=== PATIENT | female | born 1995 | race American Indian/Alaskan Native ===

== ENCOUNTER 2017-01-04 21:40 | Emergency (ER) | payer MEDICAID ==
[2017-01-05 00:46] LABS: BUN/Creatinine Ratio 13.75; Blood Urea Nitrogen 11 mg/dL (7-17); Calcium 10.3 mg/dL (8.4-10.2); Carbon Dioxide 24 mmol/L (22-30); Chloride 122.8 mmol/L (98-107); Creatine Kinase 113 units/L (30-135); Glucose 88 mg/dL (65-100); Potassium 4.1 mmol/L (3.6-5.0)
[2017-01-05 00:47] LABS: Creatine Kinase MB < 1.0 ng/mL (0.0-4.0)
[2017-01-05 00:58] LABS: INR 1.08 (0.87-1.13)
[2017-01-05 01:03] LABS: Anion Gap 25 mmol/L; Sodium 168 mmol/L (137-145)
--- NOTE | 2017-01-05 01:53 | Emergency Department Report ---
ED General Adult HPI - General Chief complaint: Syncope Stated complaint: LEFT EAR RINGING/PASSED OUT Time Seen by Provider: 01/05/17 01:39 Source: patient Mode of arrival: Ambulatory Limitations: No Limitations - History of Present Illness Initial comments: This is a 21-year-old female. She is previously unknown to me. Her primary care doctor is at [facility]. She reports a past medical history of asthma. She reports that she is not . The patient is brought to the hospital for evaluation of ear pain and syncope. The patient reports that around 6:00 last night, she was at a store, shopping. She thinks that she passed out. Prior to the event, there was no severe or sudden or thunderclap headache, there was no neck pain or neck stiffness, there is no chest pain or shortness of breath. There is no leg pain. There is no leg swelling. No recent trips greater than 4 hours. No recent hospital admissions. Does not take control tablets. Patient does report left-sided ear pain, left-sided ear ringing. She reports that she has never had chickenpox before. She denies vertigo. She admits to tinnitus. The symptoms in the ER are worsened with palpation. It decreased with rest. Patient has never had an episode of syncope before. -: Sudden Location: left (ear) Radiation: non-radiation Quality: aching Consistency: constant Improves with: rest Worsens with: movement Associated Symptoms: denies: chest pain - Related Data Previous Rx's Medication Instructions Recorded Last Taken Type Ondansetron [Zofran Odt] 4 mg PO Q6H #14 tab.rapdis 01/28/15 Unknown Rx Promethazine [Phenergan] 25 mg PO Q6H PRN #14 tablet 01/28/15 Unknown Rx Amoxicillin/K Clav Tab [Augmentin 1 tab PO Q12HR #19 tab 01/05/17 Unknown Rx 875 mg] Cipro/Dexameth 0.3/0.1% [Ciprodex 4 drops AD BID #2 bottle 01/05/17 Unknown Rx OTIC] Ibuprofen [Motrin] 600 mg PO Q8H PRN #30 tablet 01/05/17 Unknown Rx Metoclopramide [Reglan] 10 mg PO QID PRN #30 tablet 01/05/17 Unknown Rx Allergies Allergy/AdvReac Type Severity Reaction Status Date / Time oxycodone Allergy Itching Verified 11/02/14 18:29 ED Review of Systems ROS: Stated complaint: LEFT EAR RINGING/PASSED OUT Other details as noted in HPI Constitutional: denies: fever Eyes: denies: eye discharge, vision change ENT: ear pain Respiratory: denies: cough Cardiovascular: syncope Gastrointestinal: denies: abdominal pain, nausea, diarrhea Genitourinary: denies: urgency, dysuria, discharge Musculoskeletal: denies: back pain, joint swelling, arthralgia Skin: denies: rash, lesions Neurological: headache Psychiatric: as per HPI ED Past Medical Hx - Past Medical History Previous Medical History?: Yes Hx Asthma: Yes Additional medical history: ECTOPIC - Social History Smoking Status: Never Smoker Substance Use Type: None - Medications Home Medications: Home Medications Medication Instructions Recorded Confirmed Last Taken Type Ondansetron [Zofran Odt] 4 mg PO Q6H #14 tab.rapdis 01/28/15 Unknown Rx Promethazine [Phenergan] 25 mg PO Q6H PRN #14 tablet 01/28/15 Unknown Rx Amoxicillin/K Clav Tab [Augmentin 1 tab PO Q12HR #19 tab 01/05/17 Unknown Rx 875 mg] Cipro/Dexameth 0.3/0.1% [Ciprodex 4 drops AD BID #2 bottle 01/05/17 Unknown Rx OTIC] Ibuprofen [Motrin] 600 mg PO Q8H PRN #30 tablet 01/05/17 Unknown Rx Metoclopramide [Reglan] 10 mg PO QID PRN #30 tablet 01/05/17 Unknown Rx ED Physical Exam - General Limitations: No Limitations General appearance: alert, in no apparent distress - Head Head exam: Present: atraumatic, normocephalic - Eye Eye exam: Present: normal appearance, PERRL, EOMI, other (visual acuity intact to finger counting, color perception, reading at a close distance). Absent: nystagmus - ENT ENT exam: Present: normal exam, normal orophraynx, mucous membranes moist. Absent: TM's normal bilaterally (the right tympanic membrane is within normal limits. The left tympanic membrane is within normal limits. The left ear helix is minimally tender. There is no redness, pus or streaking. There is a possible vesicle noted on the posterior aspect of left external auditory canal. There is no elevation in the left ear. The left mastoid is minimally tender.) - Neck Neck exam: Present: normal inspection - Respiratory Respiratory exam: Present: normal lung sounds bilaterally. Absent: respiratory distress, wheezes, rales, rhonchi, stridor, chest wall tenderness, accessory muscle use, decreased breath sounds, prolonged expiratory - Cardiovascular Cardiovascular Exam: Present: regular rate, normal rhythm, normal heart sounds. Absent: bradycardia, tachycardia, irregular rhythm, systolic murmur, diastolic murmur, rubs, gallop - GI/Abdominal GI/Abdominal exam: Present: soft, normal bowel sounds. Absent: distended, tenderness, guarding, rebound, rigid, pulsatile mass - Extremities Exam Extremities exam: Present: normal inspection, full ROM, normal capillary refill. Absent: tenderness, pedal edema, joint swelling, calf tenderness - Back Exam Back exam: Present: normal inspection, full ROM. Absent: tenderness, CVA tenderness (R), CVA tenderness (L), muscle spasm, paraspinal tenderness, vertebral tenderness - Neurological Exam Neurological exam: Present: alert, oriented X3, normal gait (normal gait. Normal tandem gait. No past pointing. Negative Romberg examination. normal [id number].), other (Extraocular movements intact. Tongue midline. No facial droop. Facial sensation intact to light touch in the V1, V2, V3 distribution bilaterally. 5 and 5 strength in 4 extremities.. Sensation is intact to light touch in 4 extremities.). Absent: motor sensory deficit - Psychiatric Psychiatric exam: Present: normal affect, normal mood - Skin Skin exam: Present: warm, dry, intact, normal color. Absent: rash ED Course Vital Signs 01/04/17 01/05/17 01/05/17 23:26 01:27 01:30 Temperature 98.6 F Pulse Rate 75 64 Respiratory 18 17 Rate Blood Pressure 153/101 139/75 Blood Pressure [Right] O2 Sat by Pulse 100 92 100 Oximetry 01/05/17 01/05/17 01/05/17 01:38 01:41 01:51 Temperature Pulse Rate 65 78 67 Respiratory 12 16 12 Rate Blood Pressure 139/75 139/75 Blood Pressure 139/75 [Right] O2 Sat by Pulse 99 100 99 Oximetry 01/05/17 01/05/17 01/05/17 02:00 02:11 02:21 Temperature Pulse Rate 59 L 67 65 Respiratory 16 12 15 Rate Blood Pressure 132/69 139/75 139/75 Blood Pressure [Right] O2 Sat by Pulse 100 100 98 Oximetry 01/05/17 01/05/17 01/05/17 02:31 02:41 03:05 Temperature Pulse Rate 82 68 77 Respiratory 22 17 19 Rate Blood Pressure 139/75 139/75 140/67 Blood Pressure [Right] O2 Sat by Pulse 98 98 97 Oximetry 01/05/17 01/05/17 01/05/17 03:11 03:21 03:31 Temperature Pulse Rate 81 79 68 Respiratory 11 L 15 12 Rate Blood Pressure 140/67 140/67 101/74 Blood Pressure [Right] O2 Sat by Pulse 98 99 99 Oximetry - Reevaluation(s) Reevaluation #1: 01/05/17 03:22 Differential diagnosis: Intracranial injury, intracranial lesion, peripheral vertigo, herpes zoster, mastoiditis, perichondritis, chondritis Assessment and plan: 21-year-old female with pain in the ear, tinnitus, episode of syncope. She has a GCS of 15, with an NIH score of 0. There are no pulmonary embolus or DVT risk factors, and she walks with a steady gait. She is low risk by well's criteria, and she is perc negative. The left ear is minimally tender with no redness, pus or streaking. There is a possible vesicle on the posterior aspect of the external auditory canal. There is no obvious cellulitis. Bilateral ears appear to be symmetric. There is no elevation of the base of the ear. May be early episode of zoster. She will be treated symptomatically. Initial laboratory studies abnormal, they will repeated and was subsequently normal. EKG is essentially morphologically unremarkable. Persistent juvenile T-wave inversion is suggested. Noncontrast head CT is ordered to exclude intracranial injury.Patient is clinically sober at this time. The cervical spine is cleared through nexus and slovak c spine rule Reevaluation #2: 01/05/17 05:01 the patient is sleeping comfortably. Repeat neurologic examination is unremarkable. She is tolerating liquid feeds. ct scan shos left otitis externa and mastoiditis. case is discussed with ENT community relations officer [facility], Dr. Mccoy. He recommends Augmentin, 875 twice daily for 10 days, and Ciprodex. He recommends follow-up with otolaryngology, otaology specialist. Phone # [phone] patient is given names, phone numbers, addresses of the local otolaryngology specialist. She has been observed in the ER for a prolonged period of time. She is suitable for discharge at this time. She is tolerating liquid feeds. She is counseled on the importance of close outpatient follow- up. Return precautions are extensively reviewed. ED Medical Decision Making - Lab Data Result diagrams: 01/05/17 02:13 01/05/17 01:51 Vital Signs 01/04/17 01/05/17 23:26 01:38 Temperature 98.6 F Pulse Rate 75 65 Respiratory 18 12 Rate Blood Pressure 153/101 Blood Pressure 139/75 [Right] O2 Sat by Pulse 100 99 Oximetry Lab Results 01/04/17 01/04/17 01/05/17 Range/Units 23:58 23:58 01:51 WBC (4.5-11.0) K/mm3 RBC (3.65-5.03) M/mm3 Hgb (10.1-14.3) gm/dl Hct (30.3-42.9) % MCV (79-97) fl MCH (28-32) pg MCHC (30-34) % RDW (13.2-15.2) % Plt Count (140-440) K/mm3 PT 13.9 (12.2-14.9) Sec. INR 1.08 (0.87-1.13) Sodium 168 H* 142 D (137-145) mmol/L Potassium 4.1 3.9 (3.6-5.0) mmol/L Chloride 122.8 H 103.9 (98-107) mmol/L Carbon Dioxide 24 24 (22-30) mmol/L Anion Gap 25 18 mmol/L BUN 11 11 (7-17) mg/dL Creatinine 0.8 0.7 (0.7-1.2) mg/dL Estimated GFR > 60 > 60 ml/min BUN/Creatinine Ratio 13.75 15.71 % Glucose 88 79 (65-100) mg/dL Calcium 10.3 H 9.2 (8.4-10.2) mg/dL Magnesium 1.90 (1.7-2.3) mg/dL Total Creatine Kinase 113 (30-135) units/L CK-MB (CK-2) < 1.0 (0.0-4.0) ng/mL CK-MB (CK-2) Rel Index 0.8 (0-4) Troponin T < 0.010 (0.00-0.029) ng/mL HCG, Quant (0-4) mIU/mL 01/05/17 01/05/17 Range/Units 01:51 02:13 WBC 8.1 (4.5-11.0) K/mm3 RBC 4.15 (3.65-5.03) M/mm3 Hgb 10.8 (10.1-14.3) gm/dl Hct 32.3 (30.3-42.9) % MCV 78 L (79-97) fl MCH 26 L (28-32) pg MCHC 33 (30-34) % RDW 15.4 H (13.2-15.2) % Plt Count 222 (140-440) K/mm3 PT (12.2-14.9) Sec. INR (0.87-1.13) Sodium (137-145) mmol/L Potassium (3.6-5.0) mmol/L Chloride (98-107) mmol/L Carbon Dioxide (22-30) mmol/L Anion Gap mmol/L BUN (7-17) mg/dL Creatinine (0.7-1.2) mg/dL Estimated GFR ml/min BUN/Creatinine Ratio % Glucose (65-100) mg/dL Calcium (8.4-10.2) mg/dL Magnesium (1.7-2.3) mg/dL Total Creatine Kinase (30-135) units/L CK-MB (CK-2) (0.0-4.0) ng/mL CK-MB (CK-2) Rel Index (0-4) Troponin T (0.00-0.029) ng/mL HCG, Quant < 2 (0-4) mIU/mL - EKG Data When compared to previous EKG there are: previous EKG unavailable 01/05/17 03:23 Normal sinus, 66 bpm, normal intervals, normal axis, no morphological consistent with STEMI, juvenile T-wave inversion, no prior EKG available for comparison. - Radiology Data Radiology results: pending Critical care attestation.: If time is entered above; I have spent that time in minutes in the direct care of this critically ill patient, excluding procedure time. ED Disposition Clinical Impression: Otalgia, left ear Disposition: DISCHARGED TO HOME OR SELFCARE Is pt being admited?: No Does the pt Need Aspirin: No Condition: Stable Instructions: Syncope (ED), Mastoiditis in Children (ED) Additional Instructions: Take the antibiotics, pain medication, eardrops as directed. Follow up with a primary care doctor within the next week. Dr. West is a local primary care doctor. CT scan demonstrated infection in the external auditory ear canal, as well as involving the bone of the left ear. Take the antibiotics as directed. Follow up with an otolaryngology specialist within the next [address] Crespo is a local otolaryngology specialist. Alternatively, you may contact the [facility] otolaryngology Department at [phone] and arrange follow-up with any of the otolaryngology specialist : Jah Rojas or JOHN It is very important that you arrange outpatient otolaryngology follow-up. Not arranging follow-up as directed could result in loss of hearing, disability, loss of equilibrium, loss of balance. In addition, I recommend that you do not drive a car or operate motor vehicles unless cleared by either her primary care doctor or fiberglass roving winder. Dr. West is a primary care doctor. Drs. Burgess and Claudia ARE local cash management specialist. Return to the ER right away with new pain, worsened pain, migration of pain, fevers or chills, intractable nausea or vomiting, inability to tolerate liquid feeds. Prescriptions: Amoxicillin/K Clav Tab [Augmentin 875 mg] 1 tab PO Q12HR #19 tab Cipro/Dexameth 0.3/0.1% [Ciprodex OTIC] 4 drops AD BID #2 bottle Ibuprofen [Motrin] 600 mg PO Q8H PRN #30 tablet PRN Reason: Pain Metoclopramide [Reglan] 10 mg PO QID PRN #30 tablet PRN Reason: Nausea Referrals: PRIMARY CARE, [Primary Care Provider] - 3-5 Days MARILYN WEST MD [Staff Physician] - 3-5 Days MEGHANA CRESPO MD [Staff Physician] - 3-5 Days IBRAHIMA BURGESS MD [Staff Physician] - 3-5 Days AGUEDA JEREZ MD [Staff Physician] - 3-5 Days
[2017-01-05 02:21] LABS: Anion Gap 18 mmol/L; BUN/Creatinine Ratio 15.71; Blood Urea Nitrogen 11 mg/dL (7-17); Calcium 9.2 mg/dL (8.4-10.2); Carbon Dioxide 24 mmol/L (22-30); Chloride 103.9 mmol/L (98-107); Glucose 79 mg/dL (65-100); Potassium 3.9 mmol/L (3.6-5.0); Sodium 142 mmol/L (137-145)
[2017-01-05 03:09] LABS: Hematocrit 32.3 % (30.3-42.9); Hemoglobin 10.8 gm/dl (10.1-14.3); Mean Corpuscular HGB Conc 33 % (30-34); Mean Corpuscular Hemoglobin 26 pg (28-32); Mean Corpuscular Volume 78 fl (79-97); Platelet Count 222 K/mm3 (140-440); Red Blood Count 4.15 M/mm3 (3.65-5.03); Red Cell Distribution Width 15.4 % (13.2-15.2); White Blood Count 8.1 K/mm3 (4.5-11.0)
[2017-01-05] MEDS ORDERED: TORADOL IM ONE (03:18)
[2017-01-05] MEDS ORDERED: AURALGAN AU ONE (03:18)
--- NOTE | 2017-01-05 03:37 | Cat Scan Report ---
FINAL REPORT PROCEDURE: CT HEAD/BRAIN WO CON TECHNIQUE: Computerized tomography of the head was performed without contrast material. HISTORY: left sided headache COMPARISON: No prior studies are available for comparison. FINDINGS: Skull and scalp: Normal. Paranasal sinuses: The paranasal sinuses are clear. The right mastoid air cells are clear. There is fluid in the left mastoid air cells indicating mastoiditis. There is thickening and narrowing of the left external auditory canal indicating otitis externa. The left middle ear is clear. Ventricles and subarachnoid spaces: Normal. Cerebrum: No evidence of hemorrhage, acute infarction or mass . Cerebellum and brainstem: No evidence of hemorrhage, acute infarction or mass. Vasculature: Normal. Comments: None. IMPRESSION: Left mastoiditis and otitis externa. There is no bony destructive process. There is no intracranial abnormality.
[2017-01-05 03:47] VITALS: BP 101/74
[2017-01-05] MEDS ORDERED: AUGMENTIN 875 MG PO ONE (04:58)
== END 2017-01-05 05:38 | disposition home or self-care (01) ==
LOC: ED 21:40
DX: H92.02 Otalgia, left ear (principal); J45.909 Unspecified asthma, uncomplicated
CPT/HCPCS: 36415; 70450; 80048; 82550; 82553; 83735; 84484; 84702; 85025; 85610; 93005; 93010; 96372; 99284; J1885

== ENCOUNTER 2017-06-01 18:58 | Emergency (ER) | payer MEDICAID ==
[2017-06-01 20:33] LABS: Basophils % (Auto) 0.4 % (0.0-1.8); Eosinophils % (Auto) 0.3 % (0.0-4.3); Hematocrit 35.4 % (30.3-42.9); Hemoglobin 11.7 gm/dl (10.1-14.3); Mean Corpuscular HGB Conc 33 % (30-34); Mean Corpuscular Hemoglobin 27 pg (28-32); Mean Corpuscular Volume 80 fl (79-97); Platelet Count 243 K/mm3 (140-440); Red Cell Distribution Width 13.9 % (13.2-15.2); White Blood Count 9.2 K/mm3 (4.5-11.0)
[2017-06-01 20:52] LABS: Anion Gap 15 mmol/L; BUN/Creatinine Ratio 12.85; Blood Urea Nitrogen 9 mg/dL (7-17); Calcium 8.9 mg/dL (8.4-10.2); Carbon Dioxide 26 mmol/L (22-30); Chloride 104.3 mmol/L (98-107); Glucose 84 mg/dL (65-100); Potassium 3.7 mmol/L (3.6-5.0); Sodium 142 mmol/L (137-145)
--- NOTE | 2017-06-01 21:49 | Cat Scan Report ---
FINAL REPORT PROCEDURE: CT HEAD/BRAIN WO CON TECHNIQUE: Computerized tomography of the head was performed without contrast material. HISTORY: Fall, Headache, Dizzy COMPARISON: Head CT dated January 05, 2017 FINDINGS: Visualized portions of the paranasal sinuses and mastoid air cells are clear. No calvarial fracture is seen. Cerebral ventricles are normal in size. No acute intracranial hemorrhage or mass effect is seen. No CVA is seen. IMPRESSION: No abnormalities are seen.
--- NOTE | 2017-06-01 21:51 | Cat Scan Report ---
FINAL REPORT PROCEDURE: CT CERVICAL SPINE WO CON TECHNIQUE: Computerized tomography of the cervical spine was performed from the skull base to T1 without contrast material. HISTORY: Fall, Midline pain COMPARISON: No prior studies are available for comparison. FINDINGS: There is straightening of cervical lordosis. There is no subluxation. No prevertebral edema or C-spine fracture is seen. IMPRESSION: No C-spine fracture is seen.
--- NOTE | 2017-06-01 22:00 | XRay Report ---
FINAL REPORT PROCEDURE: XR SPINE LUMBOSACRAL 2-3V TECHNIQUE: Three views of the lumbar spine are obtained HISTORY: Fall, Lumbar pain, get report COMPARISON: No prior studies are available for comparison. FINDINGS: There is no scoliosis. No compression fracture or spondylolisthesis is seen. No arthritic changes are seen. Surgical clips are seen in the right upper quadrant the abdomen. IMPRESSION: No lumbar spine abnormality is seen.
[2017-06-02] MEDS ORDERED: TORADOL IM ONE (07:50)
--- NOTE | 2017-06-02 07:56 | Emergency Department Report ---
ED Back Pain/Injury HPI - General Chief Complaint: Fall Stated Complaint: FALL Time Seen by Provider: 06/02/17 07:12 Source: patient Limitations: No Limitations - History of Present Illness Initial Comments: This is a 21-year-old female nontoxic, well nourished in appearance, no acute signs of distress presents to the ED complaining of back pain, headache and dizziness 4 days. Patient stated she had a fall from a 4 feet ladder while at work onto her back. Patient denies any head trauma or loss of consciousness. Denies chest pain, shortness of breath, numbness, tingling, fever, chills, nausea, vomiting, blurry vision or visual changes. Patient is complaining of neck pain as well as low back pain. Describes pain as aching with level of 8 out of 10. Patient denies thunderclap headache and stated it is a gradual onset and describes it as aching with level VIII out of 10. Patient denies bladder or bowel stability. Patient denies any chest trauma, extremity trauma or head trauma. Denies any history of any pain. Patient she did take over-the- counter ibuprofen which decreased her headaches. Patient denies past medical history besides asthma. Allergies includes oxycodone. MD Complaint: back pain, back injury, fall -: Gradual, days(s) (4) Similar Symptoms Previously: No Place: work Radiation: none Severity: mild Severity scale (0 -10): 8 Quality: aching Consistency: constant Improves With: medication (motrin) Worsens With: none Context: fall Associated Symptoms: denies other symptoms, headaches (intermittent). denies: confusion, weakness, chest pain, numbness, difficulty walking, cough, difficulty urinating, diaphoresis, incontinence, fever/chills, constipation, abdominal pain, loss of appetite, malaise, nausea/vomiting, rash, seizure, shortness of breath, syncope - Related Data Previous Rx's Medication Instructions Recorded Last Taken Type Ondansetron [Zofran Odt] 4 mg PO Q6H #14 tab.rapdis 01/28/15 Unknown Rx Promethazine [Phenergan] 25 mg PO Q6H PRN #14 tablet 01/28/15 Unknown Rx Amoxicillin/K Clav Tab [Augmentin 1 tab PO Q12HR #19 tab 01/05/17 Unknown Rx 875 mg] Cipro/Dexameth 0.3/0.1% [Ciprodex 4 drops AD BID #2 bottle 01/05/17 Unknown Rx OTIC] Ibuprofen [Motrin] 600 mg PO Q8H PRN #30 tablet 01/05/17 Unknown Rx Metoclopramide [Reglan] 10 mg PO QID PRN #30 tablet 01/05/17 Unknown Rx Cyclobenzaprine [Flexeril] 10 mg PO TID PRN #15 tablet 06/02/17 Unknown Rx Ibuprofen [Motrin 600 MG tab] 600 mg PO Q8H PRN #30 tablet 06/02/17 Unknown Rx Allergies Allergy/AdvReac Type Severity Reaction Status Date / Time oxycodone Allergy Itching Verified 11/02/14 18:29 ED Review of Systems ROS: Stated complaint: FALL Other details as noted in HPI Constitutional: denies: chills, fever Eyes: denies: eye pain, eye discharge, vision change ENT: denies: ear pain, throat pain Respiratory: denies: cough, shortness of breath, wheezing Cardiovascular: denies: chest pain, palpitations Endocrine: no symptoms reported Gastrointestinal: denies: abdominal pain, nausea, diarrhea Genitourinary: denies: urgency, dysuria, discharge Musculoskeletal: denies: back pain, joint swelling, arthralgia Skin: denies: rash, lesions Neurological: denies: headache, weakness, paresthesias Psychiatric: denies: anxiety, depression Hematological/Lymphatic: denies: easy bleeding, easy bruising ED Past Medical Hx - Past Medical History Previous Medical History?: Yes Hx Asthma: Yes Additional medical history: ECTOPIC - Surgical History Past Surgical History?: Yes Hx Cholecystectomy: Yes Additional Surgical History: Breast Reduction - Social History Smoking Status: Never Smoker Substance Use Type: None - Medications Home Medications: Home Medications Medication Instructions Recorded Confirmed Last Taken Type Ondansetron [Zofran Odt] 4 mg PO Q6H #14 tab.rapdis 01/28/15 Unknown Rx Promethazine [Phenergan] 25 mg PO Q6H PRN #14 tablet 01/28/15 Unknown Rx Amoxicillin/K Clav Tab [Augmentin 1 tab PO Q12HR #19 tab 01/05/17 Unknown Rx 875 mg] Cipro/Dexameth 0.3/0.1% [Ciprodex 4 drops AD BID #2 bottle 01/05/17 Unknown Rx OTIC] Ibuprofen [Motrin] 600 mg PO Q8H PRN #30 tablet 01/05/17 Unknown Rx Metoclopramide [Reglan] 10 mg PO QID PRN #30 tablet 01/05/17 Unknown Rx Cyclobenzaprine [Flexeril] 10 mg PO TID PRN #15 tablet 06/02/17 Unknown Rx Ibuprofen [Motrin 600 MG tab] 600 mg PO Q8H PRN #30 tablet 06/02/17 Unknown Rx ED Physical Exam - General Limitations: No Limitations General appearance: alert, in no apparent distress - Head Head exam: Present: atraumatic, normocephalic, normal inspection - Eye Eye exam: Present: normal appearance, PERRL, EOMI. Absent: scleral icterus, conjunctival injection, nystagmus, periorbital swelling, periorbital tenderness Pupils: Present: normal accommodation - ENT ENT exam: Present: normal exam, normal orophraynx, mucous membranes moist, TM's normal bilaterally, normal external ear exam - Neck Neck exam: Present: normal inspection, full ROM. Absent: tenderness, meningismus, lymphadenopathy, thyromegaly - Respiratory Respiratory exam: Present: normal lung sounds bilaterally. Absent: respiratory distress, wheezes, rales, rhonchi, stridor, chest wall tenderness, accessory muscle use, decreased breath sounds, prolonged expiratory - Cardiovascular Cardiovascular Exam: Present: regular rate, normal rhythm, normal heart sounds. Absent: bradycardia, tachycardia, irregular rhythm, systolic murmur, diastolic murmur, rubs, gallop - GI/Abdominal GI/Abdominal exam: Present: soft, normal bowel sounds. Absent: distended, tenderness, guarding, rebound, rigid, diminished bowel sounds - Rectal Rectal exam: Present: deferred - Extremities Exam Extremities exam: Present: normal inspection, full ROM, normal capillary refill. Absent: tenderness, pedal edema, joint swelling, calf tenderness - Back Exam Back exam: Present: normal inspection, full ROM, tenderness, paraspinal tenderness (cervical and lumber region), vertebral tenderness (cervical and lumbar spinal tenderness). Absent: CVA tenderness (R), CVA tenderness (L), muscle spasm, rash noted - Expanded Back Exam Expanded Back exam: Present: normal rectal tone. Absent: saddle anesthesia Back exam: Negative Straight Leg Raising: Left, Right - Neurological Exam Neurological exam: Present: alert, oriented X3, CN II-XII intact, normal gait, reflexes normal - Expanded Neurological Exam Expanded Patient oriented to: Present: person, place, time Speech: Present: fluid speech Cranial nerves: EOM's Intact: Normal, Gag Reflex: Normal, Tongue Deviation: Normal, Nystagmus: Normal, Facial Sensation: Normal, Facial Palsy with Forehead Movement: Normal, Facial Palsy without Forehead Movement: Normal Cerebellar function: Finger to Nose: Normal, Heel to Ruiz: Normal, Romberg: Normal Upper motor neuron: Jake Neglect: Normal, Pronator Drift: Normal, Babinski Sign : Normal, Sensory Extinction: Normal Sensory exam: Upper Extremity Light Touch: Normal, Upper Extremity Pin Prick: Normal, Upper Extremity Temperature: Normal, UE 2 Point Discrimination: Normal, Lower Extremity Light Touch: Normal, Lower Extremity Pin Prick: Normal, Lower Extremity Temperature: Normal, LE 2 Point Discrimination: Normal Motor strength exam: RUE: 5, LUE: 5, RLE: 5, LLE: 5 DTR: bicep (R): 2+, bicep (L): 2+, tricep (R): 2+, tricep (L): 2+, knee (R): 2+ , knee (L): 2+, ankle (R): 2+, ankle (L): 2+ Best Eye Response ([place]): (4) open spontaneously Best Motor Response (Ta): (6) obeys commands Best Verbal Response (Ta): (5) oriented [place] Total: 15 - Psychiatric Psychiatric exam: Present: normal affect, normal mood - Skin Skin exam: Present: warm, dry, intact, normal color. Absent: rash - Other Other exam information: No bladder or bowel instability. No joint swelling or redness. No deformity. No numbness, no tingling. No ecchymosis. No abdominal distention. ED Course Vital Signs 06/01/17 06/02/17 20:05 02:29 Temperature 97.9 F Pulse Rate 81 74 Respiratory 18 Rate Blood Pressure 134/85 130/82 O2 Sat by Pulse 100 100 Oximetry - Reevaluation(s) Reevaluation #1: 06/02/17 07:59 Patient is speaking in full sentences with no signs of distress. ED Medical Decision Making - Lab Data Result diagrams: 06/01/17 20:25 06/01/17 20:25 - Medical Decision Making This is a 21-year-old female that presents with cervical and lumbar strain and headache. Patient is stable and was examined by myself. Prior to my interview patient received a head CT, cervical spine CT and lumbar spine CT and dictated by radiologist with all negative findings of any acute abnormalities. Patient denies any dizziness and headache during interview and stated it subsided. CBC , and BMP has been obtained with normal findigns. Pt received Toradol in the ED for back pain. Patient was instructed to Follow-up with your primary care doctor in 3-5 days or if symptoms worsen such as bladder or bowel stability, chest pain, short of breath, numbness or tingling sensation in extremities, headache, dizziness, visual changes, nausea vomiting, or abdominal pain, return back to emergency room as was possible. Take ibuprofen and Flexeril as prescribed. Do not operate heavy machinery while taking Flexeril due to sedation Critical care attestation.: If time is entered above; I have spent that time in minutes in the direct care of this critically ill patient, excluding procedure time. ED Disposition Clinical Impression: Cervical strain, acute Qualifiers: Encounter type: initial encounter Qualified Code(s): S16.1XXA - Strain of muscle, fascia and tendon at neck level, initial encounter Lumbar strain Qualifiers: Encounter type: initial encounter Qualified Code(s): S39.012A - Strain of muscle, fascia and tendon of lower back, initial encounter Headache Qualifiers: Headache type: unspecified Headache chronicity pattern: unspecified pattern Intractability: not intractable Qualified Code(s): R51 - Headache Disposition: - TO HOME OR SELFCARE Is pt being admited?: No Does the pt Need Aspirin: No Condition: Stable Instructions: Acute Headache (ED), Cervical Spine Strain (ED), Low Back Strain (ED), Cyclobenzaprine (By mouth), Ibuprofen (By mouth) Additional Instructions: Follow-up with your primary care doctor in 3-5 days or if symptoms worsen such as bladder or bowel stability, chest pain, short of breath, numbness or tingling sensation in extremities, headache, dizziness, visual changes, nausea vomiting, or abdominal pain, return back to emergency room as was possible. Take ibuprofen and Flexeril as prescribed. Do not operate heavy machinery while taking Flexeril due to sedation Prescriptions: Cyclobenzaprine [Flexeril] 10 mg PO TID PRN #15 tablet PRN Reason: Muscle Spasm Ibuprofen [Motrin 600 MG tab] 600 mg PO Q8H PRN #30 tablet PRN Reason: Pain Referrals: PRIMARY CAREMD [Primary Care Provider] - 3-5 Days ANDREW MCDANIELS MD [Staff Physician] - 3-5 Days [facility] [Outside] - 3-5 Days [facility] [Outside] - 3-5 Days Forms: Work/School Release Form(ED)
[2017-06-02 08:42] VITALS: BP 139/61
== END 2017-06-02 08:40 | disposition home or self-care (01) ==
LOC: ED 18:58
DX: S39.012A Strain of muscle, fascia and tendon of lower back, initial encounter (principal); S16.1XXA Strain of muscle, fascia and tendon at neck level, initial encounter; J45.909 Unspecified asthma, uncomplicated; Z88.8 Allergy status to other drugs, medicaments and biological substances; W11.XXXA Fall on and from ladder, initial encounter; Y93.89 Activity, other specified; Y92.89 Other specified places as the place of occurrence of the external cause; Y99.8 Other external cause status
CPT/HCPCS: 36415; 70450; 72100; 72125; 80048; 84703; 85025; 96372; 99284; J1885